=== PATIENT | female | born 1985 | race Caucasian/White ===

== ENCOUNTER 2024-11-07 16:10 | Emergency (ER) | payer MEDICAID ==
[~2024-11-07] VITALS: Ht 167.6 cm; Wt 180.0 kg
[2024-11-07 16:13] VITALS: BP 132/78; PULSE 99; RESP 14; TEMP 36.8; O2SAT 98
[2024-11-07] MEDS ORDERED: GUAI-450 MT (20:31)
== END 2024-11-07 20:53 | disposition home or self-care (01) ==
LOC: ER 16:10
DX: B34.9 Viral infection, unspecified (principal); Z88.0 Allergy status to penicillin; Z79.899 Other long term (current) drug therapy
CPT/HCPCS: 99283